=== PATIENT | male | born 1955 | race Caucasian/White ===

== ENCOUNTER 2016-12-10 10:28 | Outpatient (CLI) | payer BC ==
[2016-12-10 10:41] LABS: BASOPHILS % 0.5 (0.0-1.5); EOSINOPHILS % 3.6 % (0.0-6.8); MEAN CORPUSCULAR HEMOGLOBIN 31.7 pg (28.0-34.0); MONOCYTES % 4.6 % (0.0-11.0); NEUTROPHILS # 6.3 # k/uL (1.4-7.7)
[2016-12-10 11:13] LABS: eGFR (African) > 60; eGFR (Non-African) > 60
--- NOTE | 2016-12-10 14:46 | Diagnostic Imaging Report ---
TERRA CHINCHILLA [facility] [place] [facility] [address] [facility] [address] [place], [place]. [address] Report Submission Date: Dec 10, 2016 11:14:31 AM CDT Patient Study Name: CESIA MYERS Date: Dec 10, 2016 10:39:00 AM CDT Modality Type: CR Gender: M Description: CHEST : 57 Institution: [facility] [place] [facility] Physician: TERRA CHINCHILLA Examination: PA and lateral chest. History: Dyspnea Findings: PA lateral chest demonstrate a normal cardiac and mediastinal silhouette. No focal infiltrate. No effusion. No blunting of the costophrenic margins. Osseous structures are appropriate for age. Impression: No acute process. Electronically signed on Dec 10, 2016 11:14:31 AM CDT by: Wai GARCIA
== END 2016-12-10 10:30 ==
LOC: LAB 10:28
PROVIDERS: ATTEND Family Medicine
DX: Z00.00 Encounter for general adult medical examination without abnormal findings (principal); R06.09 Other forms of dyspnea
CPT/HCPCS: 36415; 71020; 80053; 80061; 85025

== ENCOUNTER 2017-03-26 12:56 | Outpatient (CLI) | payer BC ==
--- NOTE | 2017-03-26 14:26 | Diagnostic Imaging Report ---
TERRA CHINCHILLA [facility] [address] [facility] [address] [place] [id number]. [id number] Report Submission Date: Mar 26, 2017 2:00:17 PM CDT Patient Study Name: CESIA MYERS Date: Mar 26, 2017 1:14:19 PM CDT Modality Type: US\OT Gender: M Description: LIMITED BILAT DENNIS 1-2 LVL : 57 Institution: [facility] Physician: TERRA CHINCHILLA Examination: Ultrasound arterial History: Leg discomfort Comparison exams: None available Findings: Sonographic evaluation of the lower extremity arterial system from the groin to the distal extremities bilaterally demonstrates normal waveforms. Right ankle/brachial index of 0.92 Left ankle/brachial index of 1.0. Impression No reduction/restriction to hemodynamic flow. Electronically signed on Mar 26, 2017 2:00:17 PM CDT by: Wai GARCIA
== END 2017-03-26 12:57 ==
LOC: RAD 12:56
PROVIDERS: ATTEND Family Medicine
DX: R09.89 Other specified symptoms and signs involving the circulatory and respiratory systems (principal)
CPT/HCPCS: 93922

== ENCOUNTER 2017-12-16 10:28 | Outpatient (CLI) | payer BC ==
[2017-12-16 11:08] LABS: eGFR (African) > 60; eGFR (Non-African) > 60
[2017-12-16 13:14] LABS: APPEARANCE,URINE CLEAR (CLEAR); COLOR,URINE YELLOW (YELLOW); OCCULT BLOOD,URINE NEGATIVE (NEGATIVE)
== END 2017-12-16 10:30 ==
LOC: LAB 10:28
PROVIDERS: ATTEND Family Medicine
DX: Z00.00 Encounter for general adult medical examination without abnormal findings (principal); Z12.5 Encounter for screening for malignant neoplasm of prostate; Z85.528 Personal history of other malignant neoplasm of kidney
CPT/HCPCS: 36415; 80053; 80061; 81002; G0103

== ENCOUNTER 2019-02-21 11:13 | Outpatient (CLI) | payer MEDICARE, OTHER ==
[2019-02-21 12:26] LABS: APPEARANCE,URINE CLEAR (CLEAR); COLOR,URINE YELLOW (YELLOW)
[2019-02-21 12:27] LABS: OCCULT BLOOD,URINE NEGATIVE (NEGATIVE); PH URINE 6.5 (5.0 - 8.0); UROBILINOGEN URINE 0.2 Eu (0.2-1.0)
[2019-02-21 12:42] LABS: HDL 33 mg/dL (>40); eGFR (Non-African) > 60
== END 2019-02-21 11:15 ==
LOC: LAB 11:13
PROVIDERS: ATTEND Family Medicine
DX: E78.2 Mixed hyperlipidemia (principal)
CPT/HCPCS: 36415; 80053; 80061; 81002; 84153